=== PATIENT | male | born 1995 | race African-American/Black ===

== ENCOUNTER → 2017-08-28 | Outpatient (CLI) | payer BC ==
[2016-10-01 05:36] VITALS: BP 113/65
[~2017-08-28] MED LIST: DIAZ5TAB PO; depakote PO
[2017-08-28 13:20] LABS: VAL ACID 6 mcg/mL (50-100)
== END | disposition home or self-care (01) ==
LOC: LAB 12:21
PROVIDERS: ATTEND Psychiatry & Neurology Neurology
DX: Z51.81 Encounter for therapeutic drug level monitoring (principal); Z79.899 Other long term (current) drug therapy
CPT/HCPCS: 36415; 80164

== ENCOUNTER 2017-10-17 09:59 | Emergency (ER) | payer BC ==
[2017-10-17] MEDS ORDERED: AMOXICILLIN/K CLAV 875/125MG TABLET. PO ONE (11:00)
[2017-10-17] MEDS ORDERED: AMOX1TAB61 PO (11:20)
--- NOTE | 2017-10-17 11:21 | PHYS DOC ---
Past History Past Medical History: Seizure Past Surgical History: No Surgical History Smoking: Quit Less Than 1 Year Alcohol Use: None Drug Use: Marijuana Adult General Chief Complaint Chief Complaint: FACE PROBLEM HPI HPI Patient is a 22 year old M who presents with approximately 4 days ago Dominik noted his tooth going through his upper right lip while playing sports. He was able to close the wound on his own. He had conditions prior to this morning when his lip began to swell. He feels that the right side of his face has become painful and swollen. He denies fevers. He has no other associated symptoms. Review of Systems Review of Systems Constitutional: Denies fever or chills [] Eyes: Denies change in visual acuity, redness, or eye pain [] HENT: Denies nasal congestion or sore throat [] Respiratory: Denies cough or shortness of breath [] Cardiovascular: No additional information not addressed in HPI [] GI: Denies abdominal pain, nausea, vomiting, bloody stools or diarrhea [] : Denies dysuria or hematuria [] Musculoskeletal: Denies back pain or joint pain [] Integument: Negative except history of present illness Neurologic: Denies headache, focal weakness or sensory changes [] Endocrine: Denies polyuria or polydipsia [] All other systems were reviewed and found to be within normal limits, except as documented in this note. Family History Family History No pertinent family medical history was reported Current Medications Current Medications Current medications reviewed Current Medications Medications (Trade) Dose Ordered Sig/Betty Start Time Stop Time Status Last Admin Dose Admin Amoxicillin/ Clavulanate Potassium (Augmentin 875/ 125mg) 1 tab 1X ONCE 10/17/17 11:00 10/17/17 11:01 DC 10/17/17 10:49 1 TAB Fentanyl Citrate (Fentanyl 2ml Vial) 50 mcg 1X ONCE 10/17/17 11:00 10/17/17 11:01 DC 10/17/17 10:49 50 MCG Allergies Allergies Allergies Coded Allergies Type Severity Reaction Last Updated Verified No Known Drug Allergies 12/05/13 No Physical Exam Physical Exam Constitutional: Well developed, well nourished, non-toxic appearance. [] Mild distress due to pain HENT: Normocephalic, atraumatic, moderate swelling of the entire upper lip most notably on the right side with minimal swelling extending to the cheek. Purulent drainage noted from the inside of the mouth on the upper right lip. Proximally 5-10 mL's of pus was drained by manually expressing the wound. Eyes: EOMI, conjunctiva normal, no discharge. [] Neck: Normal range of motion, no tenderness, supple, no stridor. [] Cardiovascular:Heart rate regular rhythm, Lungs & Thorax: Bilateral breath sounds clear to auscultation [] Skin: Refer to HEENT Back: No tenderness, no CVA tenderness. [] Extremities: No tenderness, no cyanosis, no clubbing, ROM intact, no edema. [] Neurologic: Alert and oriented X 3, normal motor function, normal sensory function, no focal deficits noted. [] Psychologic: Affect normal, judgement normal, mood normal. [] Current Patient Data Vital Signs Vital Signs Date Time Temp Pulse Resp B/P (MAP) Pulse Ox O2 Delivery O2 Flow Rate FiO2 10/17/17 10:05 98.6 63 16 99 Room Air Lab Results Labs were declined EKG EKG [] Radiology/Procedures Radiology/Procedures CT maxillofacial Impressions: No abscess noted Course & Med Decision Making Course & Med Decision Making Pertinent Labs and Imaging studies reviewed. (See chart for details) Admission was declined for IV antibiotics, fluids and further management Dragon Disclaimer Dragon Disclaimer This electronic medical record was generated, in whole or in part, using a voice recognition dictation system. Departure Departure: Impression: Primary Impression: Facial cellulitis Disposition: 01 HOME, SELF-CARE Condition: STABLE Referrals: SHARON SOSA MD (PCP) Patient Instructions: Cellulitis Additional Instructions: Dominik was seen in the emergency department for swelling in his face. No emergency medical condition was found on history or physical exam. His symptoms are most consistent with infection in the skin of his upper lip. He did have a CT scan which was normal. He was started on antibiotics in the emergency room and was given a prescription. He is advised follow-up with his primary care doctor in the next 2-3 days for further management. He was also advised to return the emergency room if he develops new or worsening symptoms. Scripts Amoxicillin/Potassium Clav (AUGMENTIN 875-125 TABLET) 1 Each Tablet 1 TAB PO BID for 14 Days, #28 TAB Prov: KATARZYNA DASILVA MD 10/17/17 KATARZYNA DASILVA MD Oct 17, 2017 11:21
--- NOTE | 2017-10-17 11:30 | RAD ---
EXAM: CT facial bones without contrast. HISTORY: Right facial pain and cellulitis. Trauma. TECHNIQUE: CT of the facial bones was performed without intravenous contrast. COMPARISON: 10/01/2016. FINDINGS: There is soft tissue swelling along the upper lip without a clear soft tissue collection by noncontrast CT. Milder soft tissue swelling along the right anterior maxilla appears decreased since the prior study. The orbital soft tissues appear normal bilaterally. No facial fractures are identified bilaterally. There are a few small mucous retention cysts bilaterally in the maxillary sinuses. The left ostiomeatal unit is not patent currently. There are no air-fluid levels. IMPRESSION: 1. Soft tissue swelling along the upper lip without a clear drainable collection, though sensitivity is low without contrast. Less soft tissue swelling along the right nasolabial fold and right anterior maxilla appears decreased since the prior study. 2. No facial fractures. One or more of the following individualized dose reduction techniques were utilized for this examination: 1. Automated exposure control. 2. Adjustment of the mA and/or kV according to patient size. 3. Use of iterative reconstruction technique.
[2017-10-17 11:35] VITALS: BP 110/58
[2017-10-17] MEDS ORDERED: DIPHTH,PERTUSS(ACELL),TET TOX 0.5 ML DISP.SYRIN. VAX IM ONE (11:45)
== END 2017-10-17 11:35 | disposition home or self-care (01) ==
LOC: ER 09:59
DX: L03.211 Cellulitis of face (principal); K13.0 Diseases of lips; F12.10 Cannabis abuse, uncomplicated; Z87.891 Personal history of nicotine dependence
CPT/HCPCS: 70486; 90471; 90715; 96372; 99284; J3010

== ENCOUNTER 2018-06-01 20:24 | Emergency (ER) | payer BC ==
[~2018-06-01] VITALS: Ht 193 cm; Wt 83.9 kg
[~2018-06-01 20:24] MED LIST changes: +AMOX1TAB61 PO
--- NOTE | 2018-06-01 20:29 | ED.ADGEN ---
Past History Past Medical History: Seizure Past Surgical History: No Surgical History Smoking: Quit Less Than 1 Year Alcohol Use: Occasionally Drug Use: Marijuana Adult General Chief Complaint Chief Complaint ".. I went to do a lay up ... and caught my Rt. thumb on the rim... and it been really hurting...".." I had to quit play...and come in..." HPI HPI Patient is a 23 year old male who presents with above hx and complaints Thumb injury of Rt. hand. Distal neurovascular intact. There is edema of right thumb and wrist area. Patient has point tenderness over the scaphoid area. Movement of the thumb or wrist causes pain. Patient is right-hand dominant. No other injuries reported. Patient is normally healthy. Both up-to-date with vaccinations when he was in high school. No recent travel. No specific ill contacts. Not following with a Review of Systems Review of Systems Constitutional: Denies fever or chills [] Eyes: Denies change in visual acuity, redness, or eye pain [] HENT: Denies nasal congestion or sore throat [] Respiratory: Denies cough or shortness of breath [] Cardiovascular: No additional information not addressed in HPI [] GI: Denies abdominal pain, nausea, vomiting, bloody stools or diarrhea [] : Denies dysuria or hematuria [] Musculoskeletal: Denies back pain or joint pain []Complaints of right thumb pain Integument: Denies rash or skin lesions [] Neurologic: Denies headache, focal weakness or sensory changes [] Endocrine: Denies polyuria or polydipsia [] All other systems were reviewed and found to be within normal limits, except as documented in this note. Family History Family History Noncontributory Current Medications Current Medications Current Medications Medications (Trade) Dose Ordered Sig/Betty Start Time Stop Time Status Last Admin Dose Admin Ibuprofen (Motrin) 600 mg STK-MED ONCE 06/01/18 20:56 06/01/18 20:57 DC Allergies Allergies Allergies Coded Allergies Type Severity Reaction Last Updated Verified No Known Drug Allergies 12/05/13 No Physical Exam Physical Exam Constitutional: Well developed, well nourished, in acute distress, non-toxic appearance. [] HENT: Normocephalic, atraumatic, bilateral external ears normal, oropharynx moist, no oral exudates, nose normal. [] Eyes: PERRLA, EOMI, conjunctiva normal, no discharge. [] Neck: Normal range of motion, no tenderness, supple, no stridor. [] Cardiovascular:Heart rate regular rhythm, no murmur [] Lungs & Thorax: Bilateral breath sounds clear to auscultation [] Abdomen: Bowel sounds normal, soft, no tenderness, no masses, no pulsatile masses. [] Skin: Warm, dry, no erythema, no rash. [] Back: No tenderness, no CVA tenderness. [] Extremities: No tenderness, no cyanosis, no clubbing, ROM intact, no edema. [] Except findings in right thumb and wrist Neurologic: Alert and oriented X 3, normal motor function, normal sensory function, no focal deficits noted. [] Psychologic: Affect anxious, judgement normal, mood normal. [] Current Patient Data Vital Signs Vital Signs Date Time Temp Pulse Resp B/P (MAP) Pulse Ox O2 Delivery O2 Flow Rate FiO2 06/01/18 20:32 98.4 60 18 100 Room Air EKG EKG [] Radiology/Procedures Radiology/Procedures My interpretation of hand x-ray shows no obvious fracture or dislocation. Does have edema.[] Course & Med Decision Making Course & Med Decision Making Pertinent Labs and Imaging studies reviewed. (See chart for details) Ice, elevation, rest, thumb spica splint, Tylenol and ibuprofen for pain. If persistent pain after 2 weeks re-exam for possibly missed fracture not appreciated on current film. Distal neurovascular intact after application of splint. [] Final Impression Final Impression 1. Sprain strain right thumb and wrist[] Dragon Disclaimer Dragon Disclaimer This electronic medical record was generated, in whole or in part, using a voice recognition dictation system. SUE BURNS MD Jun 01, 2018 20:29
[2018-06-01] MEDS ORDERED: IBUPROFEN 600 MG TABLET. PO ONE ×2 (20:56→21:00)
--- NOTE | 2018-06-02 00:09 | RAD ---
Three-view right hand radiographs 06/01/2018 CLINICAL HISTORY: Injury to the right hand with pain. PA, lateral and oblique digital radiographs of the right hand were obtained. No fracture or dislocation of the right hand is seen. No radiopaque foreign body is noted. IMPRESSION: No fracture or dislocation of the right hand is seen. Electronically signed by: Jemal Montenegro MD (06/02/2018 12:06 AM) [facility]
== END 2018-06-01 21:23 | disposition home or self-care (01) ==
LOC: ER 20:24
DX: S63.601A Unspecified sprain of right thumb, initial encounter (principal); S63.501A Unspecified sprain of right wrist, initial encounter; Z87.891 Personal history of nicotine dependence; W23.0XXA Caught, crushed, jammed, or pinched between moving objects, initial encounter; Y93.67 Activity, basketball; Y92.89 Other specified places as the place of occurrence of the external cause; Y99.8 Other external cause status
CPT/HCPCS: 29125; 73130; 99284

== ENCOUNTER 2019-04-26 16:34 | Inpatient (IN) | payer BC ==
[~2019-04-26] VITALS: Ht 193 cm; Wt 83.9 kg
[2019-04-26 17:09] LABS: BASO # 0.1 x10^3/uL (0.0-0.2); BASO % 1 % (0-3); EOS # 0.2 x10^3/uL (0.0-0.7); EOS % 4 % (0-3); HEMATOCRIT 41.6 % (39.0-53.0); LYMPH # 1.5 x10^3/uL (1.0-4.8); LYMPH % 28 % (24-48); MEAN CORPUSCULAR HEMOGLOBIN 31 pg (25-35); MEAN CORPUSCULAR HGB CONC 34 g/dL (31-37); MEAN CORPUSCULAR VOLUME 91 fL (79-100); MONO # 0.6 x10^3/uL (0.0-1.1); MONO % 11 % (0-9); NEUT # 3.1 x10^3uL (1.8-7.7); NEUT % 57 % (31-73); PLATELET COUNT 286 x10^3/uL (140-400); RED BLOOD COUNT 4.59 x10^6/uL (4.30-5.70); RED CELL DISTRIBUTION WIDTH 14.1 % (11.5-14.5); WHITE BLOOD COUNT 5.5 x10^3/uL (4.0-11.0)
--- NOTE | 2019-04-26 17:12 | PHYS DOC ---
Past History Past Medical History: Seizure Past Surgical History: No Surgical History Smoking: Quit Less Than 1 Year Alcohol Use: None Drug Use: Marijuana Adult General Chief Complaint Chief Complaint: SEIZURE HPI HPI Patient is a 24-year-old male who presents after having had generalized seizure- like activity at home lasting approximately 1-2 minutes. EMS reports that patient was postictal upon their arrival and was combative while in route. They state that patient had calmed down by the time they had arrived to emergency room. Patient admits that he has not been taking Depakote which she had been on in the past as he has run out of his prescription. He used to see Dr. Bell for his seizures but has been removed from his practice. Mother indicates that patient had been changed to a different medication during his last visit but she is not sure what that medication was. Patient's last prescription for any type of medication was filled back in November. It did not include any antiseizure medicine.] Review of Systems Review of Systems Constitutional: Denies fever or chills [] Respiratory: Denies cough or shortness of breath [] Cardiovascular: No additional information not addressed in HPI [] Integument: Denies rash or skin lesions [] Neurologic: Denies headache, focal weakness or sensory changes. Positive seizure. [] All other systems were reviewed and found to be within normal limits, except as documented in this note. Allergies Allergies Allergies Coded Allergies Type Severity Reaction Last Updated Verified No Known Drug Allergies 12/05/13 No Physical Exam Physical Exam Constitutional: Well developed, well nourished, no acute distress, non-toxic appearance. [] HENT: Normocephalic, atraumatic, bilateral external ears normal, oropharynx moist, no oral exudates, nose normal. [] Eyes: PERRLA, EOMI, conjunctiva normal, no discharge. [] Neck: Normal range of motion, no tenderness, supple, no stridor. [] Cardiovascular:Heart rate regular rhythm, no murmur [] Lungs & Thorax: Bilateral breath sounds clear to auscultation [] Abdomen: Bowel sounds normal, soft, no tenderness. [] Skin: Warm, dry, no erythema, no rash. [] Extremities: No tenderness, no cyanosis, no clubbing, ROM intact, no edema. [] Neurologic: Alert and oriented X 3, no focal deficits noted. [] EKG EKG [] Radiology/Procedures Radiology/Procedures [] Course & Med Decision Making Course & Med Decision Making Pertinent Labs and Imaging studies reviewed. (See chart for details) [] Dragon Disclaimer Dragon Disclaimer This electronic medical record was generated, in whole or in part, using a voice recognition dictation system. Departure Departure: Impression: Primary Impression: Seizure Additional Impression: Postictal state Disposition: ADMITTED INPATIENT Admitting Physician: Jeremiah Ward Condition: GOOD Referrals: PCP,NO (PCP) Patient Instructions: Seizure, Adult Scripts Phenytoin Sodium Extended (DILANTIN) 100 Mg Capsule 300 MG PO QHS for seizure, #90 CAP Prov: ORALIA CHOWDHURY Jr. DO 04/26/19 Problem Qualifiers ORALIA CHOWDHURY Jr. DO Apr 26, 2019 17:12
[2019-04-26] MEDS ORDERED: FOSPHENYTOIN 1,000 MG in IV NORMAL SALINE 50ML 50 ML IV ONE (17:30)
[2019-04-26 17:31] LABS: VAL ACID < 3 mcg/mL (50-100)
[2019-04-26] MEDS ORDERED: ONDANSETRON PF 4 MG/2 ML VIAL. ONE (17:33)
[2019-04-26] MEDS ORDERED: ONDANSETRON PF 4 MG/2 ML VIAL. IV ONE (17:45)
[2019-04-26] MEDS ORDERED: PHEN100C PO (18:13)
[2019-04-26] MEDS: IV NORMAL SALINE 1,000ML 1,000 ML IV SCH (18:19)
[2019-04-26] MEDS ORDERED: ONDANSETRON PF 4 MG/2 ML VIAL. IV PRN (18:30)
[2019-04-26 20:21] VITALS: BP 110/66
[2019-04-26] MEDS ORDERED: ACETAMINOPHEN 325 MG TABLET PO PRN (22:30)
[2019-04-26] MEDS ORDERED: oxyCODONE/APAP 5/325 1 TAB TABLET PO PRN (22:30)
[2019-04-26 23:09] LABS: ALBUMIN 3.4 g/dL (3.4-5.0); ALBUMIN/GLOBULIN RATIO 1.1 (1.0-1.7); CALCIUM 8.9 mg/dL (8.5-10.1); GFR 111.1; TOTAL BILIRUBIN 0.5 mg/dL (0.2-1.0); TOTAL PROTEIN 6.5 g/dL (6.4-8.2)
--- NOTE | 2019-04-26 23:50 | EKG ---
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
[2019-04-27] MEDS: IV NORMAL SALINE 1,000ML 1,000 ML IV SCH ×2 (04:38→10:19)
[2019-04-27 05:15] LABS: BARBITURATES NEG (NEG); BENZODIAZEPINES NEG (NEG); CANNABINOIDS POS (NEG); COCAINE POS (NEG); METHADONE NEG (NEG); OPIATES NEG (NEG); PHENCYCLIDINE NEG (NEG)
[2019-04-27 05:19] LABS: AMPHETAMINE/METHAMPHETAMINE NEG (NEG)
[2019-04-27 06:16] LABS: CALCIUM 8.8 mg/dL (8.5-10.1); CREATININE 1.1 mg/dL (0.7-1.3); GFR 99.5; POTASSIUM 3.8 mmol/L (3.5-5.1)
[2019-04-27 06:19] LABS: BASO # 0.1 x10^3/uL (0.0-0.2); BASO % 1 % (0-3); EOS # 0.3 x10^3/uL (0.0-0.7); EOS % 5 % (0-3); HEMATOCRIT 41.1 % (39.0-53.0); HEMOGLOBIN 13.7 g/dL (13.0-17.5); LYMPH # 3.1 x10^3/uL (1.0-4.8); LYMPH % 43 % (24-48); MEAN CORPUSCULAR HEMOGLOBIN 30 pg (25-35); MEAN CORPUSCULAR HGB CONC 33 g/dL (31-37); MEAN CORPUSCULAR VOLUME 91 fL (79-100); MONO # 0.8 x10^3/uL (0.0-1.1); MONO % 11 % (0-9); NEUT # 2.9 x10^3uL (1.8-7.7); NEUT % 41 % (31-73); PLATELET COUNT 261 x10^3/uL (140-400); RED BLOOD COUNT 4.53 x10^6/uL (4.30-5.70); WHITE BLOOD COUNT 7.1 x10^3/uL (4.0-11.0)
[2019-04-27 07:06] VITALS: BP 110/69
[2019-04-27 10:20] VITALS: BP 109/60
[2019-04-28] MEDS ORDERED: PHEN100C PO (04:50)
[2019-04-28] MEDS ORDERED: DIAZ5TAB PO (04:50)
== END 2019-04-27 12:10 | disposition left against medical advice (07) | DRG 101 ==
LOC: ER 16:34 → 1 SOUTH 19:18
PROVIDERS: ADMIT Internal Medicine; ATTEND Internal Medicine
DX: R56.9 Unspecified convulsions (principal); Z87.891 Personal history of nicotine dependence; F12.90 Cannabis use, unspecified, uncomplicated; Z53.21 Procedure and treatment not carried out due to patient leaving prior to being seen by health care provider; Z79.899 Other long term (current) drug therapy
CPT/HCPCS: 36415; 80048; 80053; 80164; 80307; 83605; 84484; 85025; 93005; 96374; J2405; Q2009; 99285-25; J7030

== ENCOUNTER 2019-04-28 03:32 | Emergency (ER) | payer BC ==
[~2019-04-28] VITALS: Ht 193 cm; Wt 83.9 kg
[2019-04-28 03:32] VITALS: BP 109/60
[~2019-04-28 03:32] MED LIST changes: +PHEN100C PO
[2019-04-28 04:33] LABS: BASO # 0.1 x10^3/uL (0.0-0.2); BASO % 1 % (0-3); EOS # 0.2 x10^3/uL (0.0-0.7); EOS % 2 % (0-3); HEMATOCRIT 44.6 % (39.0-53.0); HEMOGLOBIN 15.1 g/dL (13.0-17.5); LYMPH # 2.3 x10^3/uL (1.0-4.8); LYMPH % 30 % (24-48); MEAN CORPUSCULAR HEMOGLOBIN 31 pg (25-35); MEAN CORPUSCULAR HGB CONC 34 g/dL (31-37); MEAN CORPUSCULAR VOLUME 91 fL (79-100); MONO # 0.6 x10^3/uL (0.0-1.1); MONO % 8 % (0-9); NEUT # 4.6 x10^3uL (1.8-7.7); NEUT % 60 % (31-73); PLATELET COUNT 324 x10^3/uL (140-400); RED BLOOD COUNT 4.93 x10^6/uL (4.30-5.70); WHITE BLOOD COUNT 7.8 x10^3/uL (4.0-11.0)
[2019-04-28 04:41] LABS: ANION GAP 8 (6-14); BLOOD UREA NITROGEN 11 mg/dL (8-26); CALCIUM 9.6 mg/dL (8.5-10.1); CARBON DIOXIDE 30 mmol/L (21-32); CHLORIDE 102 mmol/L (98-107); CREATININE 1.1 mg/dL (0.7-1.3); GFR 99.5; GLUCOSE 115 mg/dL (70-99); PHENY 9.5 mcg/mL (10.0-20.0); SODIUM 140 mmol/L (136-145)
--- NOTE | 2019-04-28 04:44 | PHYS DOC ---
Past History Past Medical History: Seizure Past Surgical History: No Surgical History Smoking: Quit Less Than 1 Year Alcohol Use: None Drug Use: Marijuana Adult General Chief Complaint Chief Complaint: SEIZURE HPI HPI Presents after reportedly having had 2 seizures at home this evening. Patient was seen here in the emergency room and was admitted 2 days ago and left hospital AGAINST MEDICAL ADVICE yesterday afternoon. Patient does complain of some back pain at this time since having the seizures.[] Review of Systems Review of Systems Constitutional: Denies fever or chills [] Respiratory: Denies cough or shortness of breath [] Cardiovascular: No additional information not addressed in HPI [] Musculoskeletal: Complains of mid back pain [] Neurologic: Denies headache, focal weakness or sensory changes [] All other systems were reviewed and found to be within normal limits, except as documented in this note. Allergies Allergies Allergies Coded Allergies Type Severity Reaction Last Updated Verified No Known Drug Allergies 12/05/13 No Physical Exam Physical Exam Constitutional: Well developed, well nourished, no acute distress, non-toxic appearance. [] HENT: Normocephalic, atraumatic, bilateral external ears normal, oropharynx moist, no oral exudates, nose normal. [] Eyes: PERRLA, EOMI, conjunctiva normal, no discharge. [] Neck: Normal range of motion, no tenderness, supple, no stridor. [] Cardiovascular:Heart rate regular rhythm, no murmur [] Lungs & Thorax: Bilateral breath sounds clear to auscultation [] Abdomen: Bowel sounds normal, soft. [] Skin: Warm, dry, no erythema, no rash. [] Extremities: No tenderness, no cyanosis, no clubbing, ROM intact, no edema. [] Neurologic: Alert and oriented X 3, no focal deficits noted. [] EKG EKG [] Radiology/Procedures Radiology/Procedures [] Course & Med Decision Making Course & Med Decision Making Pertinent Labs and Imaging studies reviewed. (See chart for details) [] Dragon Disclaimer Dragon Disclaimer This electronic medical record was generated, in whole or in part, using a voice recognition dictation system. Departure Departure: Impression: Primary Impression: Seizure Disposition: 01 HOME, SELF-CARE Condition: STABLE Referrals: PCP,NO (PCP) Patient Instructions: Seizure, Adult Scripts Diazepam (VALIUM) 5 Mg Tablet 5 MG PO BID PRN for seizure, #10 TAB Prov: ORALIA CHOWDHURY Jr. DO 04/28/19 Phenytoin Sodium Extended (DILANTIN) 100 Mg Capsule 300 MG PO QHS for seizure, #90 CAP Prov: ORALIA CHOWDHURY Jr. DO 04/28/19 ORALIA CHOWDHURY Jr. DO Apr 28, 2019 04:44
[2019-04-28] MEDS ORDERED: PHEN100C PO (04:50)
[2019-04-28] MEDS ORDERED: DIAZ5TAB PO (04:50)
[2019-04-28] MEDS ORDERED: PHENYTOIN SODIUM EXTENDED 100 MG CAPSULE PO ONE (05:00)
== END 2019-04-28 04:50 | disposition home or self-care (01) ==
LOC: ER 03:32
DX: R56.9 Unspecified convulsions (principal); M54.6 Pain in thoracic spine; Z87.891 Personal history of nicotine dependence
CPT/HCPCS: 36415; 80048; 80185; 85025; 99284

== ENCOUNTER 2019-05-03 22:29 | Emergency (ER) | payer BC ==
[2019-05-03 22:44] VITALS: BP 123/73
== END 2019-05-03 22:50 | disposition left against medical advice (07) ==
LOC: ER 22:29
DX: S05.92XA Unspecified injury of left eye and orbit, initial encounter (principal); Z53.21 Procedure and treatment not carried out due to patient leaving prior to being seen by health care provider; Y08.02XA Assault by strike by baseball bat, initial encounter; Y93.89 Activity, other specified; Y92.89 Other specified places as the place of occurrence of the external cause; Y99.8 Other external cause status

== ENCOUNTER 2019-09-19 23:47 | Emergency (ER) | payer BC ==
[~2019-09-19] VITALS: Ht 193 cm; Wt 90.7 kg
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
[2019-09-20 00:24] LABS: BACTERIA,URINE 0 /HPF (0-FEW); BILIRUBIN,URINE NEG (NEG); CLARITY,URINE HAZY; COLOR,URINE AMBER; GLUCOSE,URINE NEG (NEG); HYALINE CASTS, URINE OCC /HPF; NITRITE,URINE NEG (NEG); RBC,URINE 0 /HPF (0-2); SQUAMOUS EPITHELIAL CELL,UR OCC /LPF
[2019-09-20] MEDS ORDERED: MUPIROCIN 2% TOPICAL OINTMENT 22GM TUBE. TP ONE (00:30)
[2019-09-20] MEDS ORDERED: KETOROLAC 60 MG/2 ML VIAL. IM ONE (00:30)
[2019-09-20] MEDS ORDERED: DIPHTH,PERTUSS(ACELL),TET TOX 0.5 ML DISP.SYRIN. VAX IM ONE (00:30)
[2019-09-20 00:36] LABS: AMPHETAMINE/METHAMPHETAMINE POS (NEG); BARBITURATES NEG (NEG); BENZODIAZEPINES NEG (NEG); CANNABINOIDS NEG (NEG); COCAINE NEG (NEG); METHADONE NEG (NEG); OPIATES NEG (NEG); PHENCYCLIDINE NEG (NEG)
--- NOTE | 2019-09-20 00:57 | RAD ---
Ultrasound the scrotum. HISTORY: Pain, crush injury Ultrasound was used to evaluate the scrotum. Right testicle is normal in appearance. There is no testicular injury.. The right epididymis was not enlarged. Left testicle is normal in appearance without injury. Left epididymis is unremarkable. Doppler was utilized to evaluate the testicles. There is normal color-flow in both testicles without torsion. IMPRESSION: 1. No testicular injury noted. 2. Flow noted in both testicles without torsion. Electronically signed by: Guillermo Rivera MD (09/20/2019 12:55 AM) [facility]
[2019-09-20 00:58] VITALS: BP 151/82
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
[2019-09-20] MEDS ORDERED: BACITRACIN ZINC TOPICAL OINT PACKET. TP ONE (01:30)
== END 2019-09-20 01:05 | disposition home or self-care (01) ==
LOC: ER 23:47
DX: S30.1XXA Contusion of abdominal wall, initial encounter (principal); N50.811 Right testicular pain; M25.551 Pain in right hip; Z87.891 Personal history of nicotine dependence; Y08.89XA Assault by other specified means, initial encounter; Y93.89 Activity, other specified; Y92.89 Other specified places as the place of occurrence of the external cause; Y99.8 Other external cause status
CPT/HCPCS: 36415; 73521; 76870; 80307; 81001; 90471; 90715; 96372; 99285; J1885

== ENCOUNTER 2019-11-26 21:47 | Inpatient (IN) | payer BC ==
[~2019-11-26] VITALS: Ht 193 cm; Wt 84.2 kg
--- NOTE | 2019-11-26 21:51 | PHYS DOC ---
Past History Past Medical History: Seizure Past Surgical History: No Surgical History Smoking: Cigarettes, Quit Less Than 1 Year Alcohol Use: None Drug Use: None, Marijuana Adult General Chief Complaint Chief Complaint: ..." no.. just... no.. ' gunts'...:' yellow pill... HPI HPI Patient is a 24 year old male who presents with above hx and complaints of tonic clonic seizure activity 10 minutes. Patient does not take seizure meds for 2 days.. Patient in past was on Depakote. Patient very confused and uncooperative. Did state he takes a yellow pill for his seizure. Patient does have bite saab on lower lip.. History limited due to patient's mental state. Review of Systems Review of Systems Patient poor historian because of the patient's mental state Constitutional: Denies fever or chills [] Eyes: Denies change in visual acuity, redness, or eye pain [] HENT: Denies nasal congestion or sore throat [] Respiratory: Denies cough or shortness of breath [] Cardiovascular: No additional information not addressed in HPI [] GI: Denies abdominal pain, nausea, vomiting, bloody stools or diarrhea [] : Denies dysuria or hematuria [] Musculoskeletal: Denies back pain or joint pain [] Integument: Denies rash or skin lesions [] Neurologic: Denies headache, focal weakness or sensory changes [] Endocrine: Denies polyuria or polydipsia [] All other systems were reviewed and found to be within normal limits, except as documented in this note. Family History Family History Noncontributory to presentation Current Medications Current Medications See nursing for home meds Allergies Allergies Allergies Coded Allergies Type Severity Reaction Last Updated Verified No Known Drug Allergies 12/05/13 No Physical Exam Physical Exam Constitutional: no acute distress, non-toxic appearance. [] HENT: Normocephalic, appears to have a linear burn fco across his forehead, bilateral external ears normal, oropharynx moist, no oral exudates, nose normal. []Bite saab on lip and tongue. Eyes: PERRLA, EOMI, conjunctiva normal, no discharge. [] Neck: Normal range of motion, no tenderness, supple, no stridor. [] Cardiovascular:Heart rate regular rhythm, no murmur [] Lungs & Thorax: Bilateral breath sounds equal apexes scattered wheezes particularly over her right lung field auscultation [] Abdomen: Bowel sounds normal, soft, no tenderness, no masses, no pulsatile masses. [] Skin: Warm, dry, no erythema, no rash. [] Back: No tenderness, no CVA tenderness. [] Extremities: No tenderness, no cyanosis, no clubbing, ROM intact, no edema. [] Neurologic: Alert and oriented x1, 6 ounces, appears to have distal sensory function, no focal deficits noted. []DTR +2 patella and brachial.. . Appers to be having some extrapyramidal activity. Psychologic: Affect agitated, judgement. Impaired, mood normal. [] EKG EKG I interpretation EKG shows a sinus rhythm at 77 bpm. Has some nonspecific anterior lateral changes. No findings acute STEMI with contralateral changes.[] Radiology/Procedures Radiology/Procedures [][address] [id number] IMAGING REPORT Signed PATIENT: SUNIL REYES ACCOUNT: [id number] : 1995 LOCATION: ER AGE: 24 SEX: M EXAM STATUS: REG ER ORD. PHYSICIAN: SUE BURNS MD REASON: Seizure, mental status change, contusion PROCEDURE: CT HEAD AND CERVICAL SPINE WO CT scan of the head without contrast 11/26/2019 Clinical History: Seizure. Mental status changes. Confusion. Technique: Unenhanced, contiguous, 5 mm axial sections were obtained through the head. One or more of the following individualized dose reduction techniques were utilized for this study: 1. Automated exposure control. 2. Adjustment of the mA and/or kV according to patient size. 3. Use of iterative reconstruction technique. Findings: The ventricles and sulci are within normal limits in size and configuration. No acute parenchymal abnormality is seen. No extra-axial fluid collection is noted. No skull fracture is seen. Impression: No acute intracranial abnormality is seen. CT scan of the cervical spine without contrast 11/26/2019 Clinical history: Neck injury. Technique: Unenhanced, contiguous, 0.625 mm axial sections were obtained through the cervical spine. Axial, coronal and sagittal reconstructed images were obtained. One or more of the following individualized dose reduction techniques were utilized for this study: 1. Automated exposure control. 2. Adjustment of the mA and/or kV according to patient size. 3. Use of iterative reconstruction technique. Findings: Sagittal and coronal reconstructed images demonstrate mild lateral curvature of the cervical spine, convex to the right. There is reversal of the normal cervical lordosis. No fracture or subluxation of the cervical vertebrae seen. No significant degenerative changes are noted. Impression: No fracture or subluxation of the cervical vertebra is identified. Electronically signed by: Jemal Montenegro MD (11/26/2019 11:26 PM) [id number] DICTATED AND SIGNED BY: JEMAL MONTENEGRO MD DATE: 11/26/19 4814 CC: SUE BURNS MD; PCP,NO ~ Course & Med Decision Making Course & Med Decision Making Pertinent Labs and Imaging studies reviewed. (See chart for details) Pt. admitted to Dr. Ward, with neurology consult Dr. Bell in am. Will give Depakote. Reportedly his seizure meds. that he has not taken for two days. Impression: 1. Seizure Hx. - Tonic clonic 2. Mental Status Change 3. Hx. of Tobacco and Marijuana use 4. Hx. Non- compliance with meds. [] Dragon Disclaimer Dragon Disclaimer This electronic medical record was generated, in whole or in part, using a voice recognition dictation system. Departure Departure: Disposition: 01 HOME/RESIDENCE PRIOR TO ADM Condition: STABLE Referrals: PCP,NO (PCP) Dragon Disclaimer This chart was dictated in whole or in part using Voice Recognition software in a busy, high-work load, and often noisy Emergency Department environment. It may contain unintended and wholly unrecognized errors or omissions. Dragon Disclaimer This chart was dictated in whole or in part using Voice Recognition software in a busy, high-work load, and often noisy Emergency Department environment. It may contain unintended and wholly unrecognized errors or omissions. SUE BURNS MD Nov 26, 2019 21:50
[2019-11-26] MEDS ORDERED: VALPROATE SODIUM 500 MG/5 ML VIAL IV ONE (22:15)
[2019-11-26] MEDS ORDERED: IV NORMAL SALINE 50ML 50 ML ONE (22:15)
[2019-11-26] MEDS ORDERED: VALPROATE SODIUM 500 MG in IV NORMAL SALINE 50ML 50 ML IV SCH (22:30)
[2019-11-26] MEDS ORDERED: IV RINGERS SOLUTION,LACTATED 1,000 ML IV SCH ×2 (22:30→23:45)
[2019-11-26 22:31] LABS: BASO # 0.1 x10^3/uL (0.0-0.2); BASO % 1 % (0-3); EOS # 0.3 x10^3/uL (0.0-0.7); EOS % 5 % (0-3); HEMATOCRIT 41.4 % (39.0-53.0); HEMOGLOBIN 13.7 g/dL (13.0-17.5); LYMPH # 1.5 x10^3/uL (1.0-4.8); LYMPH % 25 % (24-48); MEAN CORPUSCULAR HEMOGLOBIN 30 pg (25-35); MEAN CORPUSCULAR HGB CONC 33 g/dL (31-37); MEAN CORPUSCULAR VOLUME 92 fL (79-100); MONO # 0.7 x10^3/uL (0.0-1.1); MONO % 11 % (0-9); NEUT # 3.5 x10^3uL (1.8-7.7); NEUT % 58 % (31-73); PLATELET COUNT 240 x10^3/uL (140-400); RED BLOOD COUNT 4.52 x10^6/uL (4.30-5.70); RED CELL DISTRIBUTION WIDTH 13.2 % (11.5-14.5)
[2019-11-26 22:39] LABS: BARBITURATES NEG (NEG); BENZODIAZEPINES NEG (NEG); CANNABINOIDS POS (NEG); COCAINE NEG (NEG); METHADONE NEG (NEG); OPIATES NEG (NEG); PHENCYCLIDINE NEG (NEG)
[2019-11-26 22:40] LABS: AMPHETAMINE/METHAMPHETAMINE NEG (NEG)
[2019-11-26 22:43] LABS: CALCIUM 9.2 mg/dL (8.5-10.1); CREATININE 1.1 mg/dL (0.7-1.3); GFR 99.5; POTASSIUM 3.9 mmol/L (3.5-5.1)
[2019-11-26 22:50] LABS: ALBUMIN 3.8 g/dL (3.4-5.0); DIRECT BILIRUBIN 0.2 mg/dL (0.0-0.2); TOTAL BILIRUBIN 0.6 mg/dL (0.2-1.0)
[2019-11-26 22:53] LABS: PHENY < 0.5 mcg/mL (10.0-20.0); VAL ACID < 3 mcg/mL (50-100)
[2019-11-26] MEDS ORDERED: diphenhydrAMINE 50 MG/ML VIAL IVP ONE (23:00)
[2019-11-26 23:06] LABS: BILIRUBIN,URINE NEG (NEG); CLARITY,URINE CLEAR; COLOR,URINE STRAW; GLUCOSE,URINE NEG (NEG)
[2019-11-26 23:07] LABS: BACTERIA,URINE FEW /HPF (0-FEW); NITRITE,URINE NEG (NEG); SQUAMOUS EPITHELIAL CELL,UR FEW /LPF; UROBILINOGEN,URINE 0.2 mg/dL (0.2 mg/dL); WBC,URINE OCC /HPF (0-4)
[2019-11-26 23:08] LABS: AMORPHOUS SEDIMENT,UR PRESENT /HPF
--- NOTE | 2019-11-26 23:29 | RAD ---
CT scan of the head without contrast 11/26/2019 Clinical History: Seizure. Mental status changes. Confusion. Technique: Unenhanced, contiguous, 5 mm axial sections were obtained through the head. One or more of the following individualized dose reduction techniques were utilized for this study: 1. Automated exposure control. 2. Adjustment of the mA and/or kV according to patient size. 3. Use of iterative reconstruction technique. Findings: The ventricles and sulci are within normal limits in size and configuration. No acute parenchymal abnormality is seen. No extra-axial fluid collection is noted. No skull fracture is seen. Impression: No acute intracranial abnormality is seen. CT scan of the cervical spine without contrast 11/26/2019 Clinical history: Neck injury. Technique: Unenhanced, contiguous, 0.625 mm axial sections were obtained through the cervical spine. Axial, coronal and sagittal reconstructed images were obtained. One or more of the following individualized dose reduction techniques were utilized for this study: 1. Automated exposure control. 2. Adjustment of the mA and/or kV according to patient size. 3. Use of iterative reconstruction technique. Findings: Sagittal and coronal reconstructed images demonstrate mild lateral curvature of the cervical spine, convex to the right. There is reversal of the normal cervical lordosis. No fracture or subluxation of the cervical vertebrae seen. No significant degenerative changes are noted. Impression: No fracture or subluxation of the cervical vertebra is identified. Electronically signed by: Jemal Montenegro MD (11/26/2019 11:26 PM) [id number]
[2019-11-26] MEDS ORDERED: ONDANSETRON PF 4 MG/2 ML VIAL. IVP PRN (23:45)
[2019-11-26] MEDS ORDERED: ACETAMINOPHEN 325 MG TABLET PO PRN (23:45)
--- NOTE | 2019-11-26 23:52 | RAD ---
INDICATION: Status post seizure COMPARISON: None. FINDINGS: Single view of chest obtained. . Left lung base is not well evaluated given the lack of lateral view and overlying cardiac silhouette obscuring. No definite consolidation elsewhere in the lungs. IMPRESSION: * No focal airspace consolidation or edema. Electronically signed by: Kamlesh Tinoco MD (11/26/2019 11:48 PM) [id number]
[2019-11-27 00:36] LABS: INFLUENZA A PATIENT NEGATIVE (NEGATIVE); INFLUENZA B PATIENT NEGATIVE (NEGATIVE)
[2019-11-27 00:39] VITALS: BP 114/70
[2019-11-27 05:20] VITALS: BP 102/66
--- NOTE | 2019-11-27 06:00 | EKG ---
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
[2019-11-27 06:59] LABS: CALCIUM 8.9 mg/dL (8.5-10.1); CREATININE 0.9 mg/dL (0.7-1.3); GFR 125.4; POTASSIUM 3.7 mmol/L (3.5-5.1)
[2019-11-27 07:23] LABS: BASO % 0 % (0-3); EOS # 0.4 x10^3/uL (0.0-0.7); EOS % 6 % (0-3); LYMPH # 2.7 x10^3/uL (1.0-4.8); LYMPH % 45 % (24-48); MEAN CORPUSCULAR HEMOGLOBIN 30 pg (25-35); MEAN CORPUSCULAR HGB CONC 33 g/dL (31-37); MEAN CORPUSCULAR VOLUME 91 fL (79-100); MONO # 0.6 x10^3/uL (0.0-1.1); MONO % 10 % (0-9); NEUT # 2.4 x10^3uL (1.8-7.7); NEUT % 39 % (31-73); PLATELET COUNT 213 x10^3/uL (140-400); RED CELL DISTRIBUTION WIDTH 13.3 % (11.5-14.5)
[2019-11-27] MEDS ORDERED: IPRATRPIUM/ALBUTEROL 0.5/2.5MG 3 ML NEBU. NEB SCH (08:00)
[2019-11-27] MEDS: VALPROATE SODIUM 500 MG in IV NORMAL SALINE 50ML 50 ML IV SCH ×2 (08:46→14:50)
[2019-11-27] MEDS ORDERED: ALBUTEROL SULFATE 2.5 MG/3 ML NEBU. NEB PRN (09:45)
[2019-11-27 10:31] VITALS: BP 111/66
--- NOTE | 2019-11-27 12:52 | HP ---
ADMIT DATE: 11/26/2019 HISTORY OF PRESENT ILLNESS: The patient is a 24-year-old -[place] male patient who presented with complaint of tonic-clonic seizure activity, started about 10 minutes prior to arrival. He has not taken his seizure medication for 2 days. He was on Depakote. However, I spoke with his mother, who said that he used to be on Depakote, it was discontinued and he is now following with Dr. Gonzales and he was started on Depakote. He stated that he takes a yellow pill for his seizure resident. When he arrived to the Emergency Room, he had bite saab on his lower lip. I spoke with his girlfriend. She has seen him before to have seizures and this was one of the worst seizure she ever witnessed. He was apparently postictal on arrival. He was extensively investigated in the Emergency Room. His EKG showed that he was in sinus rhythm. He had had a CT scan of the head and cervical spine and apparently was given valproic acid as well as lorazepam and diphenhydramine and was admitted to consult the neurologist. PAST MEDICAL HISTORY: Significant for seizure disorder according to his mother. He had had seizures since he was 8 years old. He used to be on phenytoin and valproic acid and was recently switched to Keppra. PAST SURGICAL HISTORY: Unremarkable. ALLERGIES: No known drug allergies. MEDICATIONS: He apparently is on phenytoin sodium extended release capsules 300 mg at bedtime and diazepam 5 mg twice a day. FAMILY HISTORY: He has 3 brothers and 1 sister, all healthy. Father at the age of 43. Mother is still alive. SOCIAL HISTORY: He is single, has no children. He does not smoke or drink alcohol, although his mother stated that he does drink alcohol. He claimed that he is not using any illicit drugs, although his toxic screen was positive for marijuana. He said that he is on probation. PHYSICAL EXAMINATION: GENERAL: On arrival to the Emergency Room, he apparently was very lethargic and appeared to be in postictal state, but there was no pallor, jaundice, cyanosis or thyromegaly. No jugular venous distention. No lower limb edema. VITAL SIGNS: Her heart rate was 77, blood pressure was 123/84, temperature was 98.4, respiratory rate was 18 and oxygen saturation was 97%. HEAD, EYES, EARS, NOSE AND THROAT: Showed normocephalic, atraumatic. NECK: Supple. HEART: Showed normal first and second heart sounds. No gallop or murmur. CHEST: Clear to auscultation. No crepitation or rhonchi. ABDOMEN: Distended, soft, nontender. No guarding or rigidity. No organomegaly. All hernial orifices intact. Bowel sounds normal. NEUROLOGIC: He was postictal, but without any obvious lateralizing sign. EXTREMITIES: He moves all his extremities without difficulty. LABORATORY DATA: On admission showed white cell count of 6000, hemoglobin was 13.7, hematocrit 41, MCV 92 and platelet count of 240,000. His prothrombin time, INR and aPTT normal. His chemistry showed serum sodium 143, potassium 3.9, chloride 104, bicarbonate was 30, anion gap of 9, BUN 10, creatinine 1.1, estimated GFR was 99 mL per minute. His glucose was 73, calcium was 9.2, magnesium 2. Total bilirubin, AST, ALT, alkaline phosphatase were normal. Total protein was 7, albumin was 3.8, lipase 104. TSH was less than 0.016. His urinalysis was unremarkable. Toxic screen was positive for cannabinoids, was negative for all other drugs. Influenza A and B were negative. His chest x-ray showed no focal airspace consolidation or edema. His CT scan of the head and cervical spine showed that there are no acute intracranial abnormalities seen and no sagittal and coronal reconstruction images demonstrate mild lateral curvature of the cervical spine, convex to the right. There is reversal of the normal cervical lordosis. No fracture or subluxation of cervical vertebrae seen. No significant degenerative changes are noted. ASSESSMENT AND PLAN: The patient was admitted with breakthrough seizure. He was given Keppra and was given Depakote as well as diphenhydramine and 2 mg of lorazepam and apparently has been extremely lethargic the whole night and was continued on valproic acid 500 mg IV every 8 hours. MARIA G SU MD DR: CHEL/alma JOB#: [id number] / [id number]
[2019-11-27 13:33] LABS: % ATYL 8 % (0-0); % BANDS 1 % (0-9); % BASOS 2 % (0-3); % EOS 3 % (0-5); % LYMPHS 33 % (24-48); % MONOS 12 % (0-10); % SEGS 41 % (35-66)
[2019-11-27 13:36] LABS: PLT ESTIMATE ADEQUATE (ADEQUATE)
[2019-11-27 14:52] VITALS: BP 111/67
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
[2019-11-27] MEDS ORDERED: VALPROIC ACID 250 MG CAPSULE. PO SCH (21:00)
== END 2019-11-27 15:44 | disposition left against medical advice (07) | DRG 101 ==
LOC: ER 21:47 → 1 SOUTH 23:45
PROVIDERS: ADMIT Internal Medicine; ATTEND Internal Medicine
DX: G40.409 Other generalized epilepsy and epileptic syndromes, not intractable, without status epilepticus (principal); F12.90 Cannabis use, unspecified, uncomplicated; Z65.3 Problems related to other legal circumstances; Z87.891 Personal history of nicotine dependence; Z91.14 Patient's other noncompliance with medication regimen; Z79.899 Other long term (current) drug therapy
CPT/HCPCS: 36415; 70450; 71045; 72125; 80048; 80076; 80164; 80185; 80307; 81001; 82550; 83690; 83735; 84443; 84484; 85007; 85025; 85610; 85730; 87804; 93005; 94640; 99406; G0238; G0480; J1200; J2060; J3490; J7120

== ENCOUNTER 2021-06-14 17:14 | Emergency (ER) | payer BC, OTHER ==
[~2021-06-14] VITALS: Ht 193 cm; Wt 89.0 kg
[2021-06-14 17:29] VITALS: BP 116/61
[2021-06-14] MEDS ORDERED: KETOROLAC TROMETHAMINE 10 MG TABLET PO ONE (18:15)
--- NOTE | 2021-06-14 18:48 | RAD ---
Left shoulder 3 views, left humerus 2 views. HISTORY: Trauma Left shoulder 3 views were taken of the left shoulder. There is not evidence of a fracture or dislocation or osseou s abnormality. Left humerus 2 views were taken the left humerus. There is not evidence of an acute fracture or osseous abnormalit y. A lateral view of the distal humerus was not obtained. IMPRESSION: 1. No fracture or dislocation noted in the left shoulder. 2. No humerus fracture noted. 3. A lateral view of the distal humerus and elbow was not obtained. Electronically signed by: Guillermo Rivera MD (06/14/2021 6:46 PM) [facility]
[2021-06-14] MEDS ORDERED: KETO10TA PO (19:28)
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
== END 2021-06-14 19:36 | disposition home or self-care (01) ==
LOC: ER 17:14
DX: S40.021A Contusion of right upper arm, initial encounter (principal); F17.210 Nicotine dependence, cigarettes, uncomplicated; W18.39XA Other fall on same level, initial encounter; Y93.89 Activity, other specified; Y92.89 Other specified places as the place of occurrence of the external cause; Y99.8 Other external cause status
CPT/HCPCS: 29240; 73030; 73060; 99284-25

== ENCOUNTER 2021-10-23 15:32 | Emergency (ER) | payer SELFPAY ==
[~2021-10-23] VITALS: Ht 193 cm; Wt 89.0 kg
[2021-10-23 15:32] VITALS: BP 135/82
[~2021-10-23 15:32] MED LIST changes: +KETO10TA PO
--- NOTE | 2021-10-23 16:31 | PHYS DOC ---
Past History Past Medical History: Seizure Past Surgical History: Other Additional Past Surgical Histo: Right hip dislocation, ORIF to right hip. Smoking: Cigarettes, Quit Less Than 1 Year Alcohol Use: Occasionally Drug Use: None, Marijuana Adult General Chief Complaint Chief Complaint: COUGH HPI HPI Patient is a 26-year-old male presenting for Covid symptoms. States he has had loss of taste and smell in addition to intermittent looser stools than usual for the past 17 days. He was tested early in disease course and was negative for Covid but presenting today requesting repeat Covid test. No other diagnosed medical conditions, takes no medications on a daily basis, has had prior known Covid positive infections twice in the past most recently being 1 month ago. He is not vaccinated against COVID-19 Review of Systems Review of Systems Fourteen body systems of review of systems have been reviewed. See HPI for pertinent positives and negative responses, other bhat all other systems are negative, non-pertinent or non-contributory Allergies Allergies Allergies Coded Allergies Type Severity Reaction Last Updated Verified No Known Drug Allergies 06/14/21 No Physical Exam Physical Exam Constitutional: Well developed, well nourished, no acute distress, non-toxic appearance. HENT: Normocephalic, atraumatic, bilateral external ears normal, oropharynx moist, no oral exudates, nose normal. Eyes: PERRLA, EOMI, conjunctiva normal, no discharge. Neck: Normal range of motion, no tenderness, supple, no stridor. Cardiovascular: Heart rate regular, sinus rhythm, no murmurs rubs or gallops Lungs & Thorax: Bilateral breath sounds clear to auscultation Abdomen: Bowel sounds normal, soft, no tenderness, no masses, no pulsatile masses. Nonsurgical abdomen, no peritoneal signs Skin: Warm, dry, no erythema, no rash. Back: No tenderness, no CVA tenderness. Extremities: No tenderness, no cyanosis, no clubbing, ROM intact, no edema. Neurologic: Alert and oriented X 3, grossly normal motor & sensory function, no focal deficits noted. Psychologic: Affect normal, judgement normal, mood normal. Current Patient Data Vital Signs Vital Signs Date Time Temp Pulse Resp B/P (MAP) Pulse Ox O2 Delivery O2 Flow Rate FiO2 10/23/21 15:32 80 135/82 (99) 100 10/23/21 15:32 16 Room Air EKG EKG [] Radiology/Procedures Radiology/Procedures [] Heart Score C/O Chest Pain: No Risk Factors: Risk Factors: DM, Current or recent (<one month) smoker, HTN, HLP, family history of CAD, obesity. Risk Scores: Risk Factors: DM, Current or recent (<one month) smoker, HTN, HLP, family history of CAD, obesity. Course & Med Decision Making Course & Med Decision Making ABCs unremarkable HPI and physical exam nonconcerning for emergent or surgical issues. Patient adamant about receiving Covid testing despite recent Covid positive state in an unvaccinated individual. Rapid test obtained Patient impatient, asked multiple times when test would be ready. He was upset with length of weight to be seen by provider. I advised him this was an emergency room and he was triaged appropriately for a nonemergent condition Ultimately, patient eloped from ER stating he had other obligations to attend to and could not wait any longer Dragon Disclaimer Dragon Disclaimer This electronic medical record was generated, in whole or in part, using a voice recognition dictation system. Departure Departure: Impression: Primary Impression: Viral syndrome Disposition: 07 LEFT AWOL/ELOPED Condition: STABLE Referrals: PCP,NO (PCP) Patient Instructions: Viral Syndrome SHERRY MERCER DO Oct 23, 2021 16:31
== END 2021-10-23 17:09 | disposition left against medical advice (07) ==
LOC: ER 15:32
DX: B34.9 Viral infection, unspecified (principal); Z20.822 Contact with and (suspected) exposure to COVID-19; Z87.891 Personal history of nicotine dependence
CPT/HCPCS: 87426; 99283

== ENCOUNTER 2021-10-27 04:28 | Emergency (ER) | payer SELFPAY ==
[~2021-10-27] VITALS: Ht 195.6 cm; Wt 86.5 kg
[2021-10-27] MEDS ORDERED: FAMOTIDINE 20 MG/2 ML VIAL ONE (04:51)
[2021-10-27] MEDS ORDERED: ONDANSETRON PF 4 MG/2 ML VIAL. ONE (04:51)
[2021-10-27] MEDS ORDERED: diphenhydrAMINE 50 MG/ML VIAL ONE (04:51)
[2021-10-27] MEDS ORDERED: methylPREDNISolone SOD SUCC PF 125 MG/2 ML VIAL. ONE (04:53)
[2021-10-27] MEDS ORDERED: SUCCINYLCHOLINE 200 MG/10 ML VIAL. ONE (04:56)
[2021-10-27] MEDS ORDERED: EPINEPHrine 5 MG in IV NORMAL SALINE 250ML 250 ML IV PRN (05:00)
[2021-10-27] MEDS ORDERED: PROPOFOL 100 ML IV ONE (05:15)
[2021-10-27] MEDS ORDERED: methylPREDNISolone SOD SUCC PF 125 MG/2 ML VIAL. IV ONE (05:30)
[2021-10-27] MEDS ORDERED: ONDANSETRON PF 4 MG/2 ML VIAL. IVP ONE (05:30)
[2021-10-27] MEDS ORDERED: diphenhydrAMINE 50 MG/ML VIAL IVP ONE (05:30)
[2021-10-27] MEDS ORDERED: PROPOFOL 100 ML IV PRN (05:30)
[2021-10-27] MEDS ORDERED: FAMOTIDINE 20 MG/2 ML VIAL IVP ONE (05:30)
--- NOTE | 2021-10-27 05:57 | PHYS DOC ---
Past History Past Medical History: Seizure Past Surgical History: Other Additional Past Surgical Histo: RIGHT HIP Smoking: Cigarettes, Quit Less Than 1 Year Alcohol Use: Occasionally Drug Use: None, Marijuana General Adult EDM: Chief Complaint: ALLERGIC REACTION HPI: HPI: 26-year-old male presents by POV for allergic reaction. The patient has an extremely swollen face and diffuse urticaria. 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 The patient was able to tell me that he used some shampoo that he thinks had coconut in it and he did not realize that when he used it. Patient has no significant medical history. He has no other complaints. He does state that his tongue is very swollen. Review of Systems: Review of Systems: Constitutional: Denies fever or chills Eyes: Denies change in visual acuity HENT: Angioedema. Denies nasal congestion or sore throat Respiratory: Denies cough or shortness of breath Cardiovascular: Denies chest pain or edema GI: Denies abdominal pain, nausea, vomiting, bloody stools or diarrhea : Denies dysuria Musculoskeletal: Denies back pain or joint pain Integument: Urticaria Neurologic: Denies headache, focal weakness or sensory changes Endocrine: Denies polyuria or polydipsia Lymphatic: Denies swollen glands Psychiatric: Denies depression or anxiety Current Medications: Current Meds: Current Medications Medications (Trade) Dose Ordered Sig/Betty Start Time Stop Time Status Last Admin Dose Admin Diphenhydramine HCl (Benadryl) 50 mg 1X ONCE 10/27/21 05:30 10/27/21 05:31 DC 10/27/21 05:21 50 MG Epinephrine HCl (EPINEPHrine AMPULE) 1 mg 1X ONCE 10/27/21 05:30 10/27/21 05:31 DC 10/27/21 05:20 1 MG Epinephrine HCl 5 mg/Sodium Chloride 255 ml @ 26.469 mls/ hr CONT PRN 10/27/21 05:00 Famotidine (Pepcid Vial) 20 mg 1X ONCE 10/27/21 05:30 10/27/21 05:31 DC 10/27/21 05:21 20 MG Methylprednisolone Sodium Succinate (SOLU-Medrol 125MG VIAL) 125 mg 1X ONCE 10/27/21 05:30 10/27/21 05:31 DC 10/27/21 05:20 125 MG Ondansetron HCl (Zofran) 4 mg 1X ONCE 10/27/21 05:30 10/27/21 05:31 DC 10/27/21 05:21 4 MG Propofol 100 ml @ 1.298 mls/ hr CONT PRN 10/27/21 05:30 10/27/21 05:19 2.595 MLS/HR Propofol (Diprivan) 200,000 mcg 1X ONCE 10/27/21 06:00 10/27/21 06:01 Cancel Sodium Chloride 1,000 ml @ 1,000 mls/hr 1X ONCE 10/27/21 06:00 10/27/21 06:59 10/27/21 05:25 1,000 MLS/HR Succinylcholine Chloride (Anectine) 200 mg STK-MED ONCE 10/27/21 04:56 10/27/21 04:56 DC Allergies: Allergies: Allergies Coded Allergies Type Severity Reaction Last Updated Verified coconut Allergy Severe 10/27/21 Yes Physical Exam: PE: Constitutional: Well developed, well nourished, no acute distress, non-toxic appearance. [] HENT: Normocephalic, atraumatic, bilateral external ears normal, oropharynx moist. Severe angioedema of the upper and lower lip, swollen tongue, diffusely swollen face. [] Eyes: Extremely swollen periorbital area. PERRLA, EOMI, conjunctiva normal, no discharge. [] Neck: Normal range of motion, no tenderness, supple, no stridor. [] Cardiovascular: Heart rate regular rhythm, no murmur [] Lungs & Thorax: Bilateral breath sounds clear to auscultation [] Abdomen: Bowel sounds normal, soft, no tenderness, no masses, no pulsatile masses. [] Skin: Diffuse urticaria [] Back: No tenderness, no CVA tenderness. [] Extremities: No tenderness, no cyanosis, no clubbing, ROM intact, no edema. [] Neurologic: Alert and oriented X 3, normal motor function, normal sensory fun ction, no focal deficits noted. [] Psychologic: Affect normal, judgement normal, mood normal. [] Current Patient Data: Vital Signs: Vital Signs Date Time Temp Pulse Resp B/P (MAP) Pulse Ox O2 Delivery O2 Flow Rate FiO2 10/27/21 05:22 100 Ventilator 10/27/21 04:40 97.9 105 21 133/78 (96) EKG: EKG: [] Radiology/Procedures: Radiology/Procedures: [] Heart Score: C/O Chest Pain: N/A Risk Factors: Risk Factors: DM, Current or recent (<one month) smoker, HTN, HLP, family history of CAD, obesity. Risk Scores: Score 0 - 3: 2.5% MACE over next 6 weeks - Discharge Home Score 4 - 6: 20.3% MACE over next 6 weeks - Admit for Clinical Observation Score 7 - 10: 72.7% MACE over next 6 weeks - Early Invasive Strategies Course & Med Decision Making: Course & Med Decision Making Pertinent Labs and Imaging studies reviewed. (See chart for details) On arrival the patient had diffuse urticaria and severe facial swelling. He was given 1 mg of epinephrine IM. This did improve his condition and the patient was able to talk and answer questions. He remained very swollen. We gave him a second IM dose of epinephrine. The patient was joking around and talking to us but did state that he felt like his tongue was still getting bigger. He started to feel like he was having some trouble breathing. Throughout this entire process, the patient's oxygen saturation was 100% on room air. The patient was given a third IM dose of 1 mg of epinephrine and the decision was made to intubate the patient. The patient was successfully intubated and placed on propofol. See note below for more details. I spoke with the patient's mother and she was in agreement with transfer to [facility]. I spoke with Dr. Ward and he has accepted the patient for transfer and admission. He will go by ambulance. [] Hilario Disclaimer: Hilario Disclaimer: This electronic medical record was generated, in whole or in part, using a voice recognition dictation system. Intubation Procedure Intub Indication: [] Anaphylaxis, angioedema Consent: [] Verbal per the patient and his mother. Medications Used: [] Etomidate and rocuronium Procedure: The patient was placed in the supine position. He was given etomidate and rocuronium. We were able to easily bagged the patient. His oxygen saturation was 100%. I then made a first attempt with a glide scope for intubation. I was able to visualize the vocal cords and pass a 7.5 tube through. The balloon was inflated. There was good color change. I personally auscultated the patient's lungs he had good breath sounds bilaterally and no breath sounds in the abdomen. Chest x-ray confirmed placement. The patient tolerated the procedure well. Complications: Severe angioedema Departure Departure: Impression: Primary Impression: Allergic reaction Disposition: 02 SHORT [facility] Admitting Physician: Jeremiah Ward Condition: STABLE Referrals: PCPMANDIE (PCP) KASHMIR KING DO Oct 27, 2021 05:57
[2021-10-27] MEDS ORDERED: PROPOFOL 10,000 MCG/ML (20ML) VIAL IV ONE (06:00)
[2021-10-27] MEDS ORDERED: IV NORMAL SALINE 1,000ML 1,000 ML IV ONE (06:00)
[2021-10-27 06:09] LABS: BGAS PH 7.26 (7.35-7.46)
[2021-10-27] MEDS ORDERED: MIDAZOLAM HCL PF 5 MG/5 ML VIAL. ONE ×3 (06:10→07:00)
[2021-10-27] MEDS ORDERED: MIDAZOLAM HCL PF 5 MG/5 ML VIAL. IV ONE ×2 (06:15→07:00)
--- NOTE | 2021-10-27 06:20 | RAD ---
EXAM: XR CHEST 1V 10/27/2021 5:20 AM CLINICAL INDICATION: Line placed COMPARISON: Chest radiograph 11/26/2019 TECHNIQUE: AP upright view of the chest FINDINGS: A new endotracheal tube terminates 5.6 cm above the stephan. The heart is normal in size. L ungs are well-expanded and clear. No pleural effusion or pneumothorax. IMPRESSION: New endotracheal tube in appropriate position. Electronically signed by: Lucero Hull MD (10/27/2021 6:18 AM) [facility]
[2021-10-27] MEDS ORDERED: MIDAZOLAM HCL PF 2 MG/2 ML VIAL. ONE (06:30)
[2021-10-27] MEDS ORDERED: MIDAZOLAM HCL 50 MG in IV NORMAL SALINE 50ML 50 ML IV ONE (06:30)
[2021-10-27] MEDS ORDERED: KETAMINE HCL 500 MG/10 ML VIAL. ONE (07:00)
[2021-10-27] MEDS ORDERED: GLYCOPYRROLATE 1 MG/5 ML VIAL. IV ONE (07:00)
[2021-10-27] MEDS ORDERED: ROCURONIUM 50 MG/5 ML VIAL. ONE (07:00)
[2021-10-27] MEDS ORDERED: ETOMIDATE 40 MG/20 ML VIAL. ONE (07:00)
[2021-10-27] MEDS ORDERED: KETAMINE HCL IN NACL, ISO-OSM 50 MG/5 ML SYRINGE IV ONE (07:00)
[2021-10-27 07:24] VITALS: BP 109/53
[2021-10-27 07:36] LABS: INFLUENZA A PATIENT NEGATIVE (NEGATIVE); INFLUENZA B PATIENT NEGATIVE (NEGATIVE)
--- NOTE | 2021-10-27 07:45 | RAD ---
EXAMINATION: XR CHEST 1V CLINICAL HISTORY: ETT adjustment. TECHNIQUE: XR CHEST 1V COMPARISON: 10/27/2021 FINDINGS/ IMPRESSION: Mild interval advancement of the endotracheal tube which now terminates 4.5 cm above the stephan. Celeste columba of the study otherwise unchanged. Electronically signed by: Sha Minor DO (10/27/2021 7:43 AM) [facility]
== END 2021-10-27 07:48 | disposition short-term general hospital (02) ==
LOC: ER 04:28
DX: T78.40XA Allergy, unspecified, initial encounter (principal); F17.210 Nicotine dependence, cigarettes, uncomplicated; Z20.822 Contact with and (suspected) exposure to COVID-19; Z91.018 Allergy to other foods; X58.XXXA Exposure to other specified factors, initial encounter
CPT/HCPCS: 31500; 36415; 36600; 51702; 71045; 82803; 87428; 96372; 96374; 96375; 99285; C9803; J0171; J1200; J2250; J2405; J2704; J2930; J3010; J3490; J7030; U0003; 94002

== ENCOUNTER 2021-11-08 02:52 | Emergency (ER) | payer SELFPAY ==
[~2021-11-08] VITALS: Ht 190.5 cm; Wt 90.1 kg
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
[2021-11-08 03:43] LABS: BASO # 0.2 x10^3/uL (0.0-0.2); BASO % 2 % (0-3); EOS % 1 % (0-3); HEMATOCRIT 44.1 % (39.0-53.0); LYMPH # 2.3 x10^3/uL (1.0-4.8); LYMPH % 27 % (24-48); MEAN CORPUSCULAR HEMOGLOBIN 31 pg (25-35); MEAN CORPUSCULAR HGB CONC 34 g/dL (31-37); MEAN CORPUSCULAR VOLUME 92 fL (79-100); MONO # 0.5 x10^3/uL (0.0-1.1); MONO % 6 % (0-9); NEUT # 5.6 x10^3uL (1.8-7.7); NEUT % 65 % (31-73); PLATELET COUNT 349 x10^3/uL (140-400); RED BLOOD COUNT 4.83 x10^6/uL (4.30-5.70); RED CELL DISTRIBUTION WIDTH 14.1 % (11.5-14.5); WHITE BLOOD COUNT 8.6 x10^3/uL (4.0-11.0)
[2021-11-08 03:47] LABS: BARBITURATES NEG (NEG); BENZODIAZEPINES POS (NEG); CANNABINOIDS NEG (NEG); COCAINE POS (NEG); METHADONE NEG (NEG); OPIATES NEG (NEG); PHENCYCLIDINE NEG (NEG)
[2021-11-08 03:50] LABS: AMPHETAMINE/METHAMPHETAMINE NEG (NEG)
[2021-11-08] MEDS ORDERED: IV NORMAL SALINE 100ML 100 ML ONE (03:52)
[2021-11-08] MEDS ORDERED: levETIRAcetam 500 MG/5 ML VIAL IV ONE (03:52)
[2021-11-08 03:59] LABS: BACTERIA,URINE FEW /HPF (0-FEW); CLARITY,URINE CLEAR; COLOR,URINE YELLOW; GLUCOSE,URINE NEG (NEG); HYALINE CASTS, URINE MOD /HPF; NITRITE,URINE NEG (NEG); SQUAMOUS EPITHELIAL CELL,UR FEW /LPF; UROBILINOGEN,URINE 0.2 mg/dL (0.2 mg/dL)
--- NOTE | 2021-11-08 04:03 | RAD ---
EXAMINATION: CT head without IV contrast. INDICATION:26 years, Male, fall, seizure. COMPARISON: None TECHNIQUE: Spiral acquisition of contiguous images from the skull base to the vertex were obtained. S agittal and coronal 2D reformatted series were provided by the technologist. Soft tissue and bone win mandy algorithms were reviewed. Exposure: One or more of the following individualized dose reduction techniques were utilized for thi s examination: 1. Automated exposure control 2. Adjustment of the mA and/or kV according to patient size 3. Use of iterative reconstruction technique. FINDINGS: Neither mass, midline shift, intracranial hemorrhage, acute/subacute ischemic changes, nor extraaxial fluid collections are seen. The brain parenchyma is normal in appearance. The ventricles are normal in size. The paranasal sinuses, mastoid air cells, and middle ears are clear.The orbital contents appear withi n normal limits. IMPRESSION: No evidence of acute intracranial abnormality. Electronically signed by: Fercho Leyva MD (11/08/2021 4:00 AM) [facility]
--- NOTE | 2021-11-08 04:04 | RAD ---
EXAMINATION: Chest radiograph. VIEWS: 1 COMPARISON: 10/27/2021 INDICATION:26 years, Male, seizure. FINDINGS: Normal cardiomediastinal silhouette. No focal consolidation. No pleural effusion or pneumothorax. No acute osseous process. IMPRESSION: No acute cardiopulmonary process. Electronically signed by: Fercho Leyva MD (11/08/2021 4:01 AM) [facility]
[2021-11-08] MEDS: IV RINGERS SOLUTION,LACTATED 1,000 ML IV ONE (04:10)
[2021-11-08 04:14] LABS: CALCIUM 9.2 mg/dL (8.5-10.1); CREATININE 1.1 mg/dL (0.7-1.3); GFR 97.9; POTASSIUM 4.3 mmol/L (3.5-5.1)
[2021-11-08 04:20] LABS: ALBUMIN 4.2 g/dL (3.4-5.0); ALBUMIN/GLOBULIN RATIO 1.3 (1.0-1.7); MAGNESIUM 2.3 mg/dL (1.8-2.4); TOTAL BILIRUBIN 0.4 mg/dL (0.2-1.0); TOTAL PROTEIN 7.5 g/dL (6.4-8.2)
[2021-11-08 04:25] VITALS: BP 151/73
--- NOTE | 2021-11-08 04:26 | EKG ---
[address] [address] Test Date: 2021-11-08 Test Time: 03:58:27 Pat Name: SUNLI REYES Department: Room: Gender: M Color Strainer: LAYLA : 1995 Requested By: OTIS BLANTON Order Number: [id number] Reading MD: Nash Conn Measurements Intervals Nora Rate: 103 P: 59 ID: [id number] QRS: 66 QRSD: 84 T: 34 QT: 326 QTc: 429 Interpretive Statements SINUS TACHYCARDIA Electronically Signed On 11-09-2021 18:42:13 HL7 INTERFACE DEVELOPER by Nash Conn
[2021-11-08] MEDS: ACETAMINOPHEN 500 MG TABLET PO ONE (04:27)
== END 2021-11-08 04:39 | disposition home or self-care (01) ==
LOC: ER 02:52
DX: R56.9 Unspecified convulsions (principal); Z87.891 Personal history of nicotine dependence; Z91.018 Allergy to other foods
CPT/HCPCS: 36415; 70450; 71045; 80053; 80307; 81001; 82550; 83735; 84484; 85025; 93005; 96365; 99285; J1953; J7120

== ENCOUNTER 2022-01-01 11:10 | Emergency (ER) | payer SELFPAY ==
[~2022-01-01] VITALS: Ht 190.5 cm; Wt 90.1 kg
[2022-01-01] MEDS ORDERED: IBUPROFEN 600 MG TABLET. PO ONE (11:45)
--- NOTE | 2022-01-01 12:00 | PHYS DOC ---
Past History Past Medical History: Seizure Past Surgical History: Other Additional Past Surgical Histo: RIGHT HIP Smoking: Cigarettes, Quit Less Than 1 Year Alcohol Use: Occasionally Drug Use: None, Marijuana General Adult EDM: Chief Complaint: ANKLE PROBLEM HPI: HPI: Patient is a 26-year-old male presents with left ankle pain. Patient states he rolled his ankle 2 days ago while playing basketball. Denies taking anything for pain. Patient states that he is unable to bear weight and has been walking on his tiptoes. Patient does have some mild swelling. Denies medical history. Review of Systems: Review of Systems: ROS At least 10 ROS systems have been reviewed and are negative except as documented in the HPI. General: Negative except as outlined in HPI above. Skin: Negative except as outlined in HPI above. HEENT: Negative except as outlined in HPI above. Neck: Negative except as outlined in HPI above. Respiratory: Negative except as outlined in HPI above.. Cardiovascular: Negative except as outlined in HPI above. Abdomen: Negative except as outlined in HPI above. : Negative except as outlined in HPI above. Back/MSK: Negative except as outlined in HPI above. Neuro: Negative except as outlined in HPI above. Psych: Negative except as outlined in HPI above. Current Medications: Current Meds: Current Medications Medications (Trade) Dose Ordered Sig/Betty Start Time Stop Time Status Last Admin Dose Admin Ibuprofen (Motrin) 600 mg 1X ONCE 01/01/22 11:45 01/01/22 11:46 UNV Allergies: Allergies: Allergies Coded Allergies Type Severity Reaction Last Updated Verified coconut Allergy Severe 10/27/21 Yes Physical Exam: PE: Constitutional: Well developed, well nourished, no acute distress, non-toxic appearance. [] HENT: Normocephalic, atraumatic, bilateral external ears normal\ Eyes: PERRLA, EOMI, conjunctiva normal, no discharge. [] Neck: Normal range of motion, no tenderness, supple, no stridor. [] Cardiovascular:Heart rate regular rhythm, no murmur [] Lungs & Thorax: Bilateral breath sounds clear to auscultation [] Abdomen: Bowel sounds normal, soft, no tenderness, no masses Skin: Warm, dry, no erythema, no rash. [] Back: No tenderness, no CVA tenderness. [] Extremities: Lateral side of left ankle pain, no cyanosis,ROM intact, mild swelling to lateral side of ankle, unable to bear weight, pedal pulses intact Neurologic: Alert and oriented X 3, normal motor function, normal sensory function, no focal deficits noted. [] Psychologic: Affect normal, judgement normal, mood normal. [] EKG: EKG: [] Radiology/Procedures: Radiology/Procedures: [] Heart Score: C/O Chest Pain: No Risk Factors: Risk Factors: DM, Current or recent (<one month) smoker, HTN, HLP, family history of CAD, obesity. Risk Scores: Score 0 - 3: 2.5% MACE over next 6 weeks - Discharge Home Score 4 - 6: 20.3% MACE over next 6 weeks - Admit for Clinical Observation Score 7 - 10: 72.7% MACE over next 6 weeks - Early Invasive Strategies Course & Med Decision Making: Course & Med Decision Making Pertinent Labs and Imaging studies reviewed. (See chart for details) [] 26 male presents with lateral side, left ankle pain. Patient states he rolled his ankle 2 days ago whelping basketball. Left ankle pain and ibuprofen for discomfort. Educated on RICE. Ibuprofen and Tylenol at home. If pain does not improve, follow back up with repeat imaging in 5 to 7 days. José Miguel wrap applied to ankle. Patient given crutches. Patient is prescribed okay with discharge plan. Hilario Disclaimer: Hilario Disclaimer: This electronic medical record was generated, in whole or in part, using a voice recognition dictation system. Departure Departure: Impression: Primary Impression: Ankle sprain Qualified Codes: S93.402A - Sprain of unspecified ligament of left ankle, initial encounter Disposition: HOME / SELF CARE / HOMELESS Condition: STABLE Referrals: MARIA GUADALUPE GRANADOS MD (PCP) Patient Instructions: Ankle Sprain Additional Instructions: You are seen the emergency room for left ankle pain. Your x-ray was negative for fracture. We wrapped her ankle in the ER and provided you with crutches. You were also given ibuprofen. Make sure you are taking ibuprofen at home. Rest, use ice, elevate to help with swelling and discomfort. Make sure you follow-up with your PCP in 5 to 7 days if symptoms have not improved. You may need repeat imaging. Return to emergency room with worsening symptoms or concerns. EMERGENCY DEPARTMENT GENERAL DISCHARGE INSTRUCTIONS Thank you for coming to [facility] (ED) today and trusting us with you care. We trust that you had a positivie experience in our Emergency Department. If you wish to speak to the department management, you may call the director at [phone]. YOUR FOLLOW UP INSTRUCTIONS ARE FOLLOWS: 1. Do you have a private Doctor? If you do not have a private doctor, please ask for a resource list of physicians or clinics that may be able to assist you with follow up care. 2. The Emergency Physician has interpreted your x-rays. The X-Ray specialist will also review them. If there is a change in the findings, you will be notified in 48 hours when at all possible. 3. A lab test or culture has been done, your results will be reviewed and you will be notified if you need a change in treatment. ADDITIONAL INSTRUCTIONS AND INFORMATION: 1. Your care today has been supervised by a physician who is specially trained in emergency care. Many problems require more than one evaluation for a complete diagnosis and treatment. We recommend that you schedule your follow up appointment as recommended to ensure complete treatment of you illness or injury. If you are unable to obtain follow up care and continue to have a problem, or if your condition worsens, we recommend that you return to the ED. 2. We are not able to safely determine your condition over the phone nor are we able to give sound medical advice over the phone. For these safety reasons, if you call for medical advice we will ask you to come to the ED for further evaluation. 3. If you have any questions regarding these discharge instructions please call the ED at [phone]. SAFETY INFORMATION: In the interest of safety, wellness, and injury prevention; we encourage you to wear your sealbelt, if you smoke; quite smoking, and we encourage family to use a protective helmet for bicycling and other sporting events that present an increased risk for head injury. IF YOUR SYMPTOMS WORSEN OR NEW SYMPTOMS DEVELOP, OR YOU HAVE CONCERNS ABOUT YOUR CONDITION; OR IF YOUR CONDITION WORSENS WHILE YOU ARE WAITING FOR YOUR FOLLOW UP APPOINTMENT; EITHER CONTACT YOUR PRIMARY CARE DOCTOR, THE PHYSICIAN WHOSE NAME AND NUMBER YOU WERE GIVEN, OR RETURN TO THE ED IMMEDIATELY. ATILIO HOPE APRN January 01, 2022 12:00
--- NOTE | 2022-01-01 12:18 | RAD ---
XR EXAM OF ANKLE_LEFT 3V DATE: 01/01/2022 12:00 PM INDICATION: left, ankle pain / Spl. Instructions: / History: COMPARISON: None. FINDINGS: Bones: There is no evidence of acute fracture or dislocation. Distal tibial diaphysis exostosis versu s intraosseous membrane calcification. Joints: The ankle mortise is congruent. No widening of the distal tibiofibular syndesmosis. Miscellaneous: None. IMPRESSION: No evidence of acute fracture. Electronically signed by: Darren Scruggs MD (01/01/2022 12:15 PM) [id number]
[2022-01-01 12:20] VITALS: BP 128/78
== END 2022-01-01 12:29 | disposition home or self-care (01) ==
LOC: ER 11:10
DX: S93.402A Sprain of unspecified ligament of left ankle, initial encounter (principal); Z87.891 Personal history of nicotine dependence; Z91.018 Allergy to other foods; X50.9XXA Other and unspecified overexertion or strenuous movements or postures, initial encounter; Y93.67 Activity, basketball; Y92.89 Other specified places as the place of occurrence of the external cause; Y99.8 Other external cause status
CPT/HCPCS: 73610; 99283

== ENCOUNTER 2022-01-12 20:34 | Emergency (ER) | payer SELFPAY ==
[~2022-01-12] VITALS: Ht 190.5 cm; Wt 90.1 kg
[2022-01-12 20:40] VITALS: BP 120/70
--- NOTE | 2022-01-12 23:00 | PHYS DOC ---
Past History Past Medical History: Seizure Past Surgical History: Other Additional Past Surgical Histo: RIGHT HIP Smoking: Cigarettes, Quit Less Than 1 Year Alcohol Use: Occasionally Drug Use: None, Marijuana General Adult EDM: Chief Complaint: COUGH HPI: HPI: ".. I am worried I have COVID, I got this cough.. and my girl friend has the same thing... Except she does not have the cough" Patient is a 26 year old male who presents with above hx and complaints non- productive cough. Congestion, drainage, sore throat, malaise, arthralgia,. Pt. has had one COVID shot.. Patient did not had any recent travel. No specific ill contacts other than his girlfriend. No history immunosuppression. Normally healthy. Patient did not get a flu vaccination. Review of Systems: Review of Systems: Constitutional: Denies fever or chills Eyes: Denies change in visual acuity HENT: Denies nasal congestion or sore throat Respiratory: Denies cough or shortness of breath Cardiovascular: Denies chest pain or edema GI: Denies abdominal pain, nausea, vomiting, bloody stools or diarrhea : Denies dysuria Musculoskeletal: Denies back pain or joint pain Integument: Denies rash Neurologic: Denies headache, focal weakness or sensory changes Endocrine: Denies polyuria or polydipsia Lymphatic: Denies swollen glands Psychiatric: Denies depression or anxiety Family History: Family History: Noncontributory presentation Current Medications: Current Meds: See nursing for home meds Allergies: Allergies: Allergies Coded Allergies Type Severity Reaction Last Updated Verified coconut Allergy Severe 10/27/21 Yes Physical Exam: PE: Constitutional: Well developed, well nourished, no acute distress, non-toxic appearance. [] HENT: Normocephalic, atraumatic, bilateral external ears normal, oropharynx m oist, injected pharynx, postnasal drainage, no oral exudates, nose swollen to remove Clear rhinorrhea Eyes: PERRLA, EOMI, conjunctiva normal, no discharge. [] Neck: Normal range of motion, no tenderness, supple, no stridor. [] Cardiovascular:Heart rate regular rhythm, no murmur [] Lungs & Thorax: Bilateral breath sounds equal apex with few scattered wheezes on auscultation []. Patient occasionally have some nonproductive coughing spasms Abdomen: Bowel sounds normal, soft, no tenderness, no masses, no pulsatile masses. [] Skin: Warm, dry, no erythema, no rash. [] Back: No tenderness, no CVA tenderness. [] Extremities: No tenderness, no cyanosis, no clubbing, ROM intact, no edema. [Right hip scar Neurologic: Alert and oriented X 3, normal motor function, normal sensory function, no focal deficits noted. [] Psychologic: Affect anxious , judgement normal, mood normal. [] EKG: EKG: [] Radiology/Procedures: Radiology/Procedures: [] Heart Score: C/O Chest Pain: N/A Risk Factors: Risk Factors: DM, Current or recent (<one month) smoker, HTN, HLP, family history of CAD, obesity. Risk Scores: Score 0 - 3: 2.5% MACE over next 6 weeks - Discharge Home Score 4 - 6: 20.3% MACE over next 6 weeks - Admit for Clinical Observation Score 7 - 10: 72.7% MACE over next 6 weeks - Early Invasive Strategies Course & Med Decision Making: Course & Med Decision Making Pertinent Labs and Imaging studies reviewed. (See chart for details) Patient gargle with Listerine 4 times a day and as needed for sore throat. Push fluids. Take Tylenol and ibuprofen for discomfort. Use MDI 2 puffs 4 times a day. Follow-up primary care. Return if any concerns. Recommend patient complete his COVID vaccination series and get a flu vaccination. Impression: 1. Viral syndrome 2. Viral Bronchitis 3. Stop Smoking Marijuana [] Dragon Disclaimer: Dragon Disclaimer: This electronic medical record was generated, in whole or in part, using a voice recognition dictation system. Departure Departure: Referrals: PCP,UNKNOWN (PCP) Dragon Disclaimer This chart was dictated in whole or in part using Voice Recognition software in a busy, high-work load, and often noisy Emergency Department environment. It may contain unintended and wholly unrecognized errors or omissions. SUE BURNS MD January 12, 2022 23:00
[2022-01-12 23:12] LABS: INFLUENZA A PATIENT NEGATIVE (NEGATIVE); INFLUENZA B PATIENT NEGATIVE (NEGATIVE)
[2022-01-12] MEDS ORDERED: ALBUTEROL SULFATE 8GM INHALER. INH ONE (23:45)
--- NOTE | 2022-01-13 00:23 | RAD ---
Chest, PA and Lateral: Technique: PA and lateral views of the chest were obtained. History: Cough. Comparison: None. Findings: The heart and pulmonary vasculature appear within normal limits. Faint airspace opacities bibasilar lungs.. The pleural margins are clear. Impression: Faint opacities bibasilar lungs likely atelectasis or infiltrates.. Electronically signed by: Chele Palacios MD (01/13/2022 12:21 AM) [id number]
== END 2022-01-13 | disposition home or self-care (01) ==
LOC: ER 20:34
DX: B34.9 Viral infection, unspecified (principal); J20.8 Acute bronchitis due to other specified organisms; F17.210 Nicotine dependence, cigarettes, uncomplicated; F12.10 Cannabis abuse, uncomplicated; Z20.822 Contact with and (suspected) exposure to COVID-19
CPT/HCPCS: 71046; 87070; 87428; 87880; 99284-25

== ENCOUNTER 2022-01-13 11:29 | Emergency (ER) | payer SELFPAY ==
[~2022-01-13] VITALS: Ht 190.5 cm; Wt 90.1 kg
[2022-01-13] MEDS ORDERED: IV NORMAL SALINE 1,000ML 1,000 ML IV ONE (11:45)
[2022-01-13 11:56] VITALS: BP 120/76
--- NOTE | 2022-01-13 12:08 | PHYS DOC ---
Past History Past Medical History: Seizure Past Surgical History: Other Additional Past Surgical Histo: RIGHT HIP Smoking: Cigarettes, Quit Less Than 1 Year Alcohol Use: None Drug Use: None, Marijuana General Adult EDM: Chief Complaint: SEIZURE HPI: HPI: 26-year-old male presents via EMS after seizure. 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 The patient does not remember all of the events from today. He was having tonic-clonic type movements on the ground and his coworkers called an ambulance. He was given Versed on the scene. When he woke up in the ambulance he was combative and got an additional dose of Versed. The patient does not remember this. He tells me that he has a seizure disorder and he is supposed to be on Keppra. He has been unable to afford it so he has not taken some in at least a few weeks. Prior to that, he was rationing them and taking them every few days. He complains of head pain and feels like he hit his head when he passed out. He has no other specific complaints at this time. Review of Systems: Review of Systems: Constitutional: Denies fever or chills Eyes: Denies change in visual acuity HENT: Denies nasal congestion or sore throat Respiratory: Denies cough or shortness of breath Cardiovascular: Denies chest pain or edema GI: Denies abdominal pain, nausea, vomiting, bloody stools or diarrhea : Denies dysuria Musculoskeletal: Denies back pain or joint pain Integument: Denies rash Neurologic: Headache. Denies focal weakness or sensory changes Endocrine: Denies polyuria or polydipsia Lymphatic: Denies swollen glands Psychiatric: Denies depression or anxiety Current Medications: Current Meds: Current Medications Medications (Trade) Dose Ordered Sig/Betty Start Time Stop Time Status Last Admin Dose Admin Levetiracetam 1000 mg/Sodium Chloride 100 ml @ 400 mls/hr 1X ONCE 01/13/22 12:00 01/13/22 12:14 Sodium Chloride 1,000 ml @ 1,000 mls/hr 1X ONCE 01/13/22 11:45 01/13/22 12:44 Allergies: Allergies: Allergies Coded Allergies Type Severity Reaction Last Updated Verified coconut Allergy Severe 10/27/21 Yes Physical Exam: PE: Constitutional: Well developed, well nourished, no acute distress, non-toxic appearance. [] HENT: Normocephalic, atraumatic, bilateral external ears normal, oropharynx moist, no oral exudates, nose normal. [] Eyes: PERRLA, EOMI, conjunctiva normal, no discharge. [] Neck: Normal range of motion, no tenderness, supple, no stridor. [] Cardiovascular: Heart rate regular rhythm, no murmur [] Lungs & Thorax: Bilateral breath sounds clear to auscultation [] Abdomen: Bowel sounds normal, soft, no tenderness, no masses, no pulsatile masses. [] Skin: Warm, dry, no erythema, no rash. [] Back: No tenderness, no CVA tenderness. [] Extremities: No tenderness, no cyanosis, no clubbing, ROM intact, no edema. [] Neurologic: Alert and oriented X 3, slow to answer questions, normal motor function, normal sensory function, no focal deficits noted. [] Psychologic: Affect normal, judgement normal, mood normal. [] EKG: EKG: [] Radiology/Procedures: Radiology/Procedures: [] Heart Score: C/O Chest Pain: N/A Risk Factors: Risk Factors: DM, Current or recent (<one month) smoker, HTN, HLP, family history of CAD, obesity. Risk Scores: Score 0 - 3: 2.5% MACE over next 6 weeks - Discharge Home Score 4 - 6: 20.3% MACE over next 6 weeks - Admit for Clinical Observation Score 7 - 10: 72.7% MACE over next 6 weeks - Early Invasive Strategies Course & Med Decision Making: Course & Med Decision Making Pertinent Labs and Imaging studies reviewed. (See chart for details) The patient pulled out his IV and eloped from the emergency room AGAINST MEDICAL ADVICE. [] Dragon Disclaimer: Dragon Disclaimer: This electronic medical record was generated, in whole or in part, using a voice recognition dictation system. Departure Departure: Impression: Primary Impression: Seizure Disposition: LEFT AGAINST MEDICAL ADVICE Condition: GUARDED Referrals: PCP,UNKNOWN (PCP) KASHMIR KING DO January 13, 2022 12:08
[2022-01-13 12:44] LABS: BASO # 0.1 x10^3/uL (0.0-0.2); BASO % 1 % (0-3); EOS # 0.3 x10^3/uL (0.0-0.7); EOS % 4 % (0-3); HEMATOCRIT 45.2 % (39.0-53.0); HEMOGLOBIN 15.3 g/dL (13.0-17.5); LYMPH # 2.2 x10^3/uL (1.0-4.8); LYMPH % 30 % (24-48); MEAN CORPUSCULAR HEMOGLOBIN 31 pg (25-35); MEAN CORPUSCULAR HGB CONC 34 g/dL (31-37); MEAN CORPUSCULAR VOLUME 91 fL (79-100); MONO # 0.4 x10^3/uL (0.0-1.1); MONO % 6 % (0-9); NEUT # 4.4 x10^3uL (1.8-7.7); NEUT % 60 % (31-73); PLATELET COUNT 274 x10^3/uL (140-400); RED BLOOD COUNT 4.95 x10^6/uL (4.30-5.70); RED CELL DISTRIBUTION WIDTH 13.8 % (11.5-14.5); WHITE BLOOD COUNT 7.4 x10^3/uL (4.0-11.0)
[2022-01-13 13:09] LABS: CALCIUM 9.9 mg/dL (8.5-10.1); GFR 109.3; POTASSIUM 3.6 mmol/L (3.5-5.1)
[2022-01-13 13:15] LABS: ALBUMIN 4.4 g/dL (3.4-5.0); ALBUMIN/GLOBULIN RATIO 1.3 (1.0-1.7); TOTAL PROTEIN 7.9 g/dL (6.4-8.2)
== END 2022-01-13 13:12 | disposition left against medical advice (07) ==
LOC: ER 11:29
DX: R56.9 Unspecified convulsions (principal); F12.10 Cannabis abuse, uncomplicated; Z87.891 Personal history of nicotine dependence; Z53.29 Procedure and treatment not carried out because of patient's decision for other reasons
CPT/HCPCS: 36415; 80053; 85025; 96365; 99284; J1953; J7030; 70450